=== PATIENT | female | born 1945 | race Caucasian/White ===

== ENCOUNTER 2022-06-20 14:42 | Outpatient (REF) | payer MEDICARE, SELFPAY ==
[2022-06-20 14:58] LABS: MANUAL DIFF FLAG NO
[2022-06-20 15:54] LABS: Basophils Percent Auto 0.5 % (0-2); Eosinophils Absolute Auto 0.1 X10*3/uL (0.0-0.4); Hematocrit 37.7 % (37.0-47.0); Hemoglobin 12.2 g/dl (12.0-16.0); Imm Gran Abs Auto 0.02 X10*3/uL (0.00-0.03); Imm Gran Pct Auto 0.3 % (0.0-0.4); Mean Corpuscular HGB Conc 32.4 g/dl (31.0-35.0); Mean Corpuscular Hemoglobin 30.1 pg (27.0-33.0); Mean Corpuscular Volume 93.1 fL (80.0-98.0); Mean Platelet Volume 10.4 fL (9.4-12.3); Monocytes Absolute Auto 0.4 X10*3/uL (0.1-1.2); Monocytes Percent Auto 7.1 % (2-11); Neutrophils Absolute Auto 3.3 x10*3/uL (2.0-8.3); Neutrophils Percent Auto 56.1 % (45-73); Platelet Count 281 X10*3/uL (160-400); Red Blood Count 4.05 X10*6/uL (4.20-5.50); Red Cell Distribution Width 13.3 % (11.0-16.0); White Blood Count 5.8 X10*3/uL (4.8-10.8)
[2022-06-20 16:26] LABS: Alanine Aminotransferase 14 U/L (0-31); Albumin Level 4.3 g/dL (3.5-5.0); Alkaline Phosphatase 79 U/L (39-117); Anion Gap 16 (12-20); Aspartate Amino Transferase 19 U/L (5-31); Bilirubin Total 0.5 mg/dL (0.0-1.0); Blood Urea Nitrogen 16 mg/dL (9-16); Calcium 9.2 mg/dL (8.4-10.2); Carbon Dioxide 24 mmol/L (22-29); Chloride 107 mmol/L (96-108); Cholesterol 184 mg/dL; Estimated Glomerular Filt Rate > 60; Glucose Fasting 88 mg/dL (60-99); HDL Cholesterol 68 mg/dL; LDL Cholesterol Calculated 100 mg/dl; Potassium 4.2 mmol/L (3.3-5.1); Sodium 143 mmol/L (135-145); Total Protein 7.1 g/dL (6.5-8.0); Triglycerides 82 mg/dL
== END 2022-06-20 14:43 | disposition home or self-care (01) ==
LOC: HO.LAB 14:42
PROVIDERS: PCP Internal Medicine; Visit Provider Internal Medicine
DX: Z13.0 Encounter for screening for diseases of the blood and blood-forming organs and certain disorders involving the immune mechanism (principal); E78.5 Hyperlipidemia, unspecified; E03.9 Hypothyroidism, unspecified; I10 Essential (primary) hypertension
CPT/HCPCS: 36415; 80053; 80061; 84443; 85025

== ENCOUNTER 2022-09-26 12:58 | Emergency (ER) | payer MEDICARE, SELFPAY ==
--- NOTE | ~2022-09-26 | XR_ITS ---
EXAMINATION: AP PELVIS, 2 VIEWS LEFT HIP, LEFT SHOULDER/HUMERUS. CLINICAL INFORMATION: Pain COMPARISON: CT scan of May 03, 2011 TECHNIQUE: AP pelvis and 2 views left hip. 3 views of the left shoulder and humerus. FINDINGS: AP film of the pelvis does not demonstrate any definite acute fracture or diastases. There is stool overlying the left superior and inferior pubic rami and evaluation of this region is limited. There is significant degenerative change of the lower lumbar spine from L3 to S1. No significant sacroiliac joint abnormalities appreciated. Hip joint spaces appear maintained. There appears to be osteitis pubis. No acute fracture is identified. There is some degenerative spurring about the inferior acetabulum. This essentially nondisplaced fracture of the proximal left humerus involving the greater tuberosity. Calcific tendinitis is also present.. XR/XR shoulder LT min 2V IMPRESSION: Lumbar spondylosis. No definite acute fracture or diastases of the pelvis and no definite acute fracture or dislocation of the left hip. Left greater tuberosity essentially nondisplaced fracture and calcific tendinitis.
--- NOTE | ~2022-09-26 | CT_ITS ---
EXAMINATION: CT chest wo IV con. CLINICAL INFORMATION: Reason for Exam Left chest wall pain COMPARISON: Prior CT 2013 TECHNIQUE: Multidetector volumetric CT imaging of the chest was done. Axial MIP volume rendering provided. Sagittal and coronal reformatted images were obtained. This CT examination was performed using dose optimization techniques as appropriate, variously including the following: *Automated exposure control *Adjustment of mA and/or kV according to patient size (this includes techniques or standardized protocols for targeted exams where dose is matched to indication/reason for exam; i.e. extremities or head) *Use of iterative reconstruction technique CONTRAST: Noncontrasted study. DLP: 340 mGy-cm FINDINGS: Exam limited by motion artifacts. SECURITY SHIFT SUPERVISOR: LINES/TUBES: Double End Trimmer reviewed, no lines. LUNGS: Lung parenchyma: No evidence of significant interstitial disease. Lung nodules/masses: No lung mass or suspicious spiculated nodules, there are few scattered tiny nonspecific lung nodular densities measuring up to 3 mm or less. AIRWAYS: Endotracheal and bronchial calcification trachea, stenosis. No intrabronchial mass or lesion. PLEURA: No lung mass or suspicious spiculated nodules, there are few scattered tiny nonspecific lung nodular densities measuring up to 3 mm or less. MEDIASTINUM AND JOAQUIM: No mediastinal, hilar or axillary lymphadenopathy. No mediastinal mass. VESSELS: HEART AND PERICARDIUM: Thoracic aorta is normal in size. Heart is normal in size. No pericardial effusion. There are heavy coronary calcifications. Pulmonary arteries are normal in size. LOWER NECK, AXILLA: The visualized thyroid gland is unremarkable. No axillary mass or adenopathy. VISUALIZED ABDOMEN: Unremarkable CHEST WALL AND BONES: No chest wall mass. The visualized bony thorax is within normal limits. CT/CT chest wo IV con IMPRESSION: Markedly limited study, patient positioned obliquely in the scanner, extensive motion artifact causing image distortion. * No lung mass or suspicious spiculated nodules, there are few scattered tiny nonspecific lung nodular densities measuring up to 3 mm or less. * Heavy coronary calcification. * No CT evidence of mediastinal or hilar lymphadenopathy.
--- NOTE | ~2022-09-26 | XR_ITS ---
EXAMINATION: AP PELVIS, 2 VIEWS LEFT HIP, LEFT SHOULDER/HUMERUS. CLINICAL INFORMATION: Pain COMPARISON: CT scan of May 03, 2011 TECHNIQUE: AP pelvis and 2 views left hip. 3 views of the left shoulder and humerus. FINDINGS: AP film of the pelvis does not demonstrate any definite acute fracture or diastases. There is stool overlying the left superior and inferior pubic rami and evaluation of this region is limited. There is significant degenerative change of the lower lumbar spine from L3 to S1. No significant sacroiliac joint abnormalities appreciated. Hip joint spaces appear maintained. There appears to be osteitis pubis. No acute fracture is identified. There is some degenerative spurring about the inferior acetabulum. This essentially nondisplaced fracture of the proximal left humerus involving the greater tuberosity. Calcific tendinitis is also present.. XR/XR humerus LT IMPRESSION: Lumbar spondylosis. No definite acute fracture or diastases of the pelvis and no definite acute fracture or dislocation of the left hip. Left greater tuberosity essentially nondisplaced fracture and calcific tendinitis.
--- NOTE | ~2022-09-26 | XR_ITS ---
EXAMINATION: AP PELVIS, 2 VIEWS LEFT HIP, LEFT SHOULDER/HUMERUS. CLINICAL INFORMATION: Pain COMPARISON: CT scan of May 03, 2011 TECHNIQUE: AP pelvis and 2 views left hip. 3 views of the left shoulder and humerus. FINDINGS: AP film of the pelvis does not demonstrate any definite acute fracture or diastases. There is stool overlying the left superior and inferior pubic rami and evaluation of this region is limited. There is significant degenerative change of the lower lumbar spine from L3 to S1. No significant sacroiliac joint abnormalities appreciated. Hip joint spaces appear maintained. There appears to be osteitis pubis. No acute fracture is identified. There is some degenerative spurring about the inferior acetabulum. This essentially nondisplaced fracture of the proximal left humerus involving the greater tuberosity. Calcific tendinitis is also present.. XR/XR hip LT w PEL1V IMPRESSION: Lumbar spondylosis. No definite acute fracture or diastases of the pelvis and no definite acute fracture or dislocation of the left hip. Left greater tuberosity essentially nondisplaced fracture and calcific tendinitis.
[2022-09-26 13:23] VITALS: BP 196/68; BP 204/60; PULSE 60; PULSE 67; RESP 22; TEMP 36.5; O2SAT 98; BMI 29.2
--- NOTE | 2022-09-26 13:45 | ED_ITS ---
HPI - Extremity Problem General Chief complaint: Extremity Injury, Upper Stated complaint: FALL PER EMS Time Seen by Provider: 09/26/22 13:34 Source: patient Mode of arrival: ambulatory History of Present Illness HPI Narrative: 77-year-old female is brought in by EMS after she was scared by a mouse which causes her to jump back she became unsteady and fell onto her left side and comes in with significant left arm pain, left chest wall pain but denies any head strike or loss of consciousness. Patient also states that she is having left hip pain. She denies any numbness or tingling in the left upper extremity and is able to wiggle her fingers. Related Data Previous Rx's Medication Instructions Recorded atorvastatin 20 mg tablet 20 mg PO BEDTIME #90 tabs 06/25/22 benazepril 20 mg tablet 20 mg PO DAILY #90 tabs 09/05/22 Allergies Allergy/AdvReac Type Severity Reaction Status Date / Time acetaminophen [From TYLENOL] Allergy Unknown UNKNOWN Verified 09/20/22 09:25 atorvastatin Allergy Unknown abdominal Verified 09/20/22 09:25 cramps atracurium Allergy Unknown Unknown Verified 09/20/22 09:25 eggs Allergy Unknown diarrhea Verified 09/20/22 09:25 lactase [From Dairy Aid] Allergy Unknown diarrhea Verified 09/20/22 09:25 morphine [MORPHINE] Allergy Unknown VOMITING Verified 09/20/22 09:25 sugar Allergy Unknown anaphylaxis Verified 09/20/22 09:25 urea [From Atrac-Tain] Allergy Unknown Unknown Verified 09/20/22 09:25 milk [MILK] AdvReac Intermediate NAUSEA & Verified 09/20/22 09:25 VOMITING Sugars, Metabolically Active AdvReac Intermediate NAUSEA & Verified 09/20/22 09:25 [SUGAR] VOMITING Review of Systems Review of Systems: Pertinent positives and negatives as stated in HPI PMFSH Past Medical History Source: nursing notes reviewed Medical History Hyperlipidemia Surgical History History of appendectomy History of cholecystectomy History of hysterectomy History of tonsillectomy Skin cancer of face Family History Family History Father Lung cancer Mother Alzheimers disease Sister Uterine cancer Brother No problems noted. Son No problems noted. Son No problems noted. Son No problems noted. Son No problems noted. Social History Social History Housing: House Alcohol intake: never Patient Tobacco Use Status: Never used Tobacco e-Cigarette/Vaping Use: Never Used Second Hand Smoke Exposure: No Advance Directives: Yes Advance Directives Information Provided: No Advance Directives on File: No service: No Current occupational status: retired Physical Exam Vital Signs: Vital Signs: Last Vital Signs Temp 98.2 F 09/26/22 16:35 Pulse 58 09/26/22 16:35 Resp 14 09/26/22 16:35 BP 174/82 H 09/26/22 16:35 Pulse Ox 97 09/26/22 16:35 O2 Del Method 09/26/22 16:35 BMI result Body Mass Index 29.2 VITAL SIGNS: Reviewed. GENERAL: Well developed, well nourished, in no acute distress. HEAD: Normocephalic/atraumatic EYES: PERRLA, EOMI EARS: Ext canals without abnormality NOSE: Nares patent bilateral OROPHARYNX: no oral lesions noted, posterior pharynx clear NECK: Supple, no adenopathy LUNGS: Normal breath sounds. No adventitious sounds or accessory muscle use. SpO2<98> CARDIOVASCULAR: Regular rate and rhythm without noted murmurs ABDOMEN: Soft, non-tender, non-distended with bowel sounds. PELVIS: Stable but tenderness noted over the left hip area and some concern for possible rotation and shortening MUSCULOSKELETAL: No tenderness, deformities, or effusions noted on gross inspection. EXTREMITIES: No cyanosis, clubbing or edema; LEFT UPPER EXTREMITY: Patient has swelling over the lateral humeral head, no tenderness to palpation over the AC, palpable radial/ulnar pulses with sensation intact. SKIN: Inspection of the skin reveals no rashes NEUROLOGIC: Alert and oriented x 4. Strength and sensation to light touch were grossly intact x 4. Medications Administered Discontinued Medications Generic Name Dose Route Start Last Admin Trade Name Freq PRN Reason Stop Dose Admin Fentanyl 25 mcg 09/26/22 13:42 09/26/22 13:53 Fentanyl Citrate/Pf 100 Mcg/2 Ml Vial IVPUSH 09/26/22 13:43 25 mcg ONCE ONE Administration Protocol Medical Decision Making Medical Decision Making MDM Narrative: 77-year-old female with a fall and suspect left humeral/hip fracture 1646: There is no evidence of acute infection and hemoglobin appears to be stable, chemistries are negative for acute renal or electrolyte derangement. X- rays are significant for nondisplaced fracture of the left greater tuberosity of the humerus. Patient is doing much better after having received pain medication and will be placed in sling and given follow-up for Orthopedics. Differential Diagnosis Differential Diagnoses: The differential diagnosis associated with the presentation includes I will rule out fracture or dislocation of the left shoulder, fracture of the left hip Lab Data MDM Lab Attestation statement: I reviewed the patient's lab results. Please see discussion above Result Diagrams: 09/26/22 13:59 09/26/22 13:59 Labs: Lab Results 09/26/22 09/26/22 09/26/22 Range/Units 13:59 13:59 13:59 WBC 7.4 (4.8-10.8) X10*3/uL RBC 3.83 L (4.20-5.50) X10*6/uL Hgb 11.5 L (12.0-16.0) g/dl Hct 34.6 L (37.0-47.0) % MCV 90.3 (80.0-98.0) fL MCH 30.0 (27.0-33.0) pg MCHC 33.2 (31.0-35.0) g/dl RDW 13.0 (11.0-16.0) % Plt Count 228 (160-400) X10*3/uL MPV 10.2 (9.4-12.3) fL Immature Gran % (Auto) 0.3 (0.0-0.4) % Neut % (Auto) 75.9 H (45-73) % Lymph % (Auto) 14.7 L (20-40) % [place] % (Auto) 8.0 (2-11) % Eos % (Auto) 0.7 (0-4) % Baso % (Auto) 0.4 (0-2) % Lymph # (Auto) 1.1 L (1.2-4.9) X10*3/uL [place] # (Auto) 0.6 (0.1-1.2) X10*3/uL Eos # (Auto) 0.1 (0.0-0.4) X10*3/uL Baso # (Auto) 0.0 (0.0-0.2) X10*3/uL Abs Immat Gran (auto) 0.02 (0.00-0.03) X10*3/uL Absolute Neuts (auto) 5.6 (2.0-8.3) x10*3/uL Absolute Nucleated RBC 0.000 (0.0-0.012) X10*3/uL Nucleated RBC % (auto) 0.0 (0.0-0.2) /100WBC PT 11.1 (10.0-13.1) SEC INR 1.0 (0.9-1.1) Sodium 142 (135-145) mmol/L Potassium 3.8 (3.3-5.1) mmol/L Chloride 109 H (96-108) mmol/L Carbon Dioxide 21 L (22-29) mmol/L Anion Gap 16 (12-20) BUN 17 H (9-16) mg/dL Creatinine 0.83 (0.5-1.4) mg/dL Estim Creat Clear Calc 51.3 Estimated GFR > 60 Random Glucose 89 (60-115) mg/dL Calcium 9.0 (8.4-10.2) mg/dL Total Bilirubin 0.5 (0.0-1.0) mg/dL AST 19 (5-31) U/L ALT 15 (0-31) U/L Alkaline Phosphatase 82 (39-117) U/L Total Protein 6.4 L (6.5-8.0) g/dL Albumin 3.9 (3.5-5.0) g/dL Radiology Impression Radiologist Impression: My interpretation is in agreement with the radiologist's impression of imaging studies. External Record Review External record reviewed: Outpatient record and Prior outpatient labs Discharge Plan Discharge Clinical Impression: Fall, Closed left humeral fracture Patient Disposition: Home, Self-Care Instructions: Fall Prevention for Older Adults (ED), Arm Fracture in Adults (ED ), How to Use a Sling (ED) Additional Instructions: 1. Resume all home medications as prescribed. 2. Tylenol 1000 mg, orally, every 6 hours as needed for pain control. Do not exceed 4000 mg within 24 hours. 3. Ibuprofen 400 mg, orally with milk or food, every 6 hours as needed for pain control. 4. It will be important for you to keep the sling in place unless showering. You have been provided with a referral to follow-up with orthopedics in 1 week. Please call the office tomorrow. 5. Recommend that you apply ice to unexposed skin for 5-10 minutes, 3 to 4 times a day. Return to the ER for any worsening symptoms. Prescriptions: No Action atorvastatin 20 mg tablet 20 mg PO BEDTIME Qty: 90 3RF benazepril 20 mg tablet 20 mg PO DAILY Qty: 90 7RF Referrals: Romel Arauz MD [Primary Care Provider] - (Left humeral fracture) Jagdeep Graff MD [Physician] - (Left, nondisplaced fracture of the greater tuberosity. Patient in a sling.)
[2022-09-26] MEDS: fentaNYL citrate/PF 100 MCG/2 ML VIAL 25 MCG IVPUSH (13:53)
--- NOTE | 2022-09-26 14:03 | PC.NURSE ---
PAtient i bit calmer tolerated IV pain meds son at bedside, patient reports pain primarily left upper ext and left ankle no abduction or shortening noted.
[2022-09-26 14:05] LABS: MANUAL DIFF FLAG NO
[2022-09-26 14:08] LABS: Basophils Percent Auto 0.4 % (0-2); Eosinophils Absolute Auto 0.1 X10*3/uL (0.0-0.4); Eosinophils Percent Auto 0.7 % (0-4); Hematocrit 34.6 % (37.0-47.0); Hemoglobin 11.5 g/dl (12.0-16.0); Imm Gran Abs Auto 0.02 X10*3/uL (0.00-0.03); Imm Gran Pct Auto 0.3 % (0.0-0.4); Lymphocytes Absolute Auto 1.1 X10*3/uL (1.2-4.9); Lymphocytes Percent Auto 14.7 % (20-40); Mean Corpuscular HGB Conc 33.2 g/dl (31.0-35.0); Mean Corpuscular Volume 90.3 fL (80.0-98.0); Mean Platelet Volume 10.2 fL (9.4-12.3); Monocytes Absolute Auto 0.6 X10*3/uL (0.1-1.2); Neutrophils Absolute Auto 5.6 x10*3/uL (2.0-8.3); Neutrophils Percent Auto 75.9 % (45-73); Platelet Count 228 X10*3/uL (160-400); Red Blood Count 3.83 X10*6/uL (4.20-5.50); White Blood Count 7.4 X10*3/uL (4.8-10.8)
[2022-09-26 14:13] LABS: Prothrombin Time 11.1 SEC (10.0-13.1)
[2022-09-26 14:19] LABS: Alanine Aminotransferase 15 U/L (0-31); Albumin Level 3.9 g/dL (3.5-5.0); Alkaline Phosphatase 82 U/L (39-117); Anion Gap 16 (12-20); Aspartate Amino Transferase 19 U/L (5-31); Bilirubin Total 0.5 mg/dL (0.0-1.0); Blood Urea Nitrogen 17 mg/dL (9-16); Carbon Dioxide 21 mmol/L (22-29); Chloride 109 mmol/L (96-108); Creatinine Clr Calc Pharmacy 51.3; Estimated Glomerular Filt Rate > 60; Glucose Random 89 mg/dL (60-115); Potassium 3.8 mmol/L (3.3-5.1); Sodium 142 mmol/L (135-145); Total Protein 6.4 g/dL (6.5-8.0)
[2022-09-26 16:02] VITALS: BP 165/81; PULSE 63; RESP 18; O2SAT 98
[2022-09-26 16:35] VITALS: BP 174/82; PULSE 58; RESP 14; TEMP 36.8; O2SAT 97
--- NOTE | 2022-09-26 16:57 | PC.NURSE ---
Applied sling to left arm, pt was in pain stating it hurt. Sling successfully applied and pt is resting waiting to be discharged. SG
== END 2022-09-26 17:16 | disposition home or self-care (01) ==
PROVIDERS: Emergency Provider Student in an Organized Health Care Education/Training Program; PCP Internal Medicine
DX: S42.255A Nondisplaced fracture of greater tuberosity of left humerus, initial encounter for closed fracture (principal); W17.89XA Other fall from one level to another, initial encounter; M25.552 Pain in left hip; I10 Essential (primary) hypertension; E78.5 Hyperlipidemia, unspecified; Y93.89 Activity, other specified; Y92.019 Unspecified place in single-family (private) house as the place of occurrence of the external cause; Y99.9 Unspecified external cause status; Z79.02 Long term (current) use of antithrombotics/antiplatelets; Z79.899 Other long term (current) drug therapy
CPT/HCPCS: 36415; 71250; 73030; 73060; 73502; 80053; 85025; 85610; 96374; 99283; 99284; J3010

== ENCOUNTER 2022-10-11 10:01 | Outpatient (REF) | payer MEDICARE, SELFPAY ==
--- NOTE | ~2022-10-11 | XR_ITS ---
EXAMINATION: XR SHOULDER, LEFT CLINICAL INFORMATION: Left shoulder pain. COMPARISON: Left shoulder 09/26/2022. TECHNIQUE: Suboptimal left shoulder exam; only 2 views obtained due to pain. FINDINGS: There is a nondisplaced left humeral neck fracture. There is a small avulsion fracture fragment along the lateral humeral head. There is no dislocation. The AC joint is intact. The soft tissues are normal. XR/XR shoulder LT min 2V IMPRESSION: Nondisplaced left humeral neck fracture. There is a small avulsion fracture fragment along the lateral humeral head. The fracture was noted on the previous left shoulder x-ray 09/26/2022.
== END 2022-10-11 10:02 | disposition home or self-care (01) ==
LOC: HO.HOSX 10:01
PROVIDERS: Visit Provider Physician Assistant
DX: S42.202A Unspecified fracture of upper end of left humerus, initial encounter for closed fracture (principal)
CPT/HCPCS: 73030; 99202

== ENCOUNTER 2022-11-10 14:54 | Outpatient (REF) | payer MEDICARE, SELFPAY ==
--- NOTE | ~2022-11-10 | XR_ITS ---
EXAMINATION: XR SHOULDER, LEFT CLINICAL INFORMATION: Left shoulder pain. COMPARISON: 10/11/2022. TECHNIQUE: Two views of the left shoulder. FINDINGS: There is an impacted fracture of the left humeral neck which appears stable in alignment compared to prior. There is increasing sclerosis across the fracture site. The AC joint appears intact. The visible left lung is clear. XR/XR shoulder LT min 2V IMPRESSION: Impacted left humeral neck fracture.
== END 2022-11-10 14:55 | disposition home or self-care (01) ==
LOC: HO.HOSX 14:54
PROVIDERS: Visit Provider Physician Assistant
DX: S42.202A Unspecified fracture of upper end of left humerus, initial encounter for closed fracture (principal)
CPT/HCPCS: 73030; 99212

== ENCOUNTER 2023-04-18 10:32 | Outpatient (AMB) | payer MEDICARE, SELFPAY ==
--- NOTE | 2023-04-18 10:45 | MHC.PC.OV ---
Vital Signs 04/18/23 10:46 Height 5 ft 2 in Weight 131 lb 6.328 oz BMI 24.0 BP 130/62 Blood Pressure Location Lt brachial Position Sitting Pulse 62 Pulse Source Pulse Oximeter Pulse Oximetry (%) 99 Oxygen Delivery Method Room Air Intake Visit Reasons: 3 month f/u Intake Note: Patient is here to follow up on HTN, Hyperlipidemia. Artificial Foliage Arranger Required: No Site Supervisor: Not Required per policy Accompanied by: Self / Same As Patient Allergies acetaminophen [From TYLENOL] Allergy (Unknown, Verified 04/18/23 10:46) UNKNOWN atorvastatin Allergy (Unknown, Verified 04/18/23 10:46) abdominal cramps atracurium Allergy (Unknown, Verified 04/18/23 10:46) Unknown egg Allergy (Unknown, Verified 04/18/23 10:46) Diarrhea lactase [From Dairy Aid] Allergy (Unknown, Verified 04/18/23 10:46) diarrhea morphine [MORPHINE] Allergy (Unknown, Verified 04/18/23 10:46) VOMITING sugar Allergy (Unknown, Verified 04/18/23 10:46) anaphylaxis urea [From Atrac-Tain] Allergy (Unknown, Verified 04/18/23 10:46) Unknown milk [MILK] Adverse Reaction (Intermediate, Verified 04/18/23 10:46) NAUSEA & VOMITING Sugars, Metabolically Active [SUGAR] Adverse Reaction (Intermediate, Verified 04/18/23 10:46) NAUSEA & VOMITING Medication List - Last Reconciled 04/18/23 by Romel Arauz MD atorvastatin 20 mg PO BEDTIME benazepril 20 mg PO DAILY Tobacco use date assessed: 04/18/23 Fall risk assessment: 1 Fall in past year Last assessed Fall Risk: 04/18/23 Dental Screening Dental Screen Date: 04/18/23 Did you have a dental visit in the last 12 months?: Yes Did you have a dental problem in the last 6 months where you did not have access to dental care?: No Was dental information given to patient?: No (dentures) HPI 3 month f/u HPI Details hyperlipidemia and htn on rx; has not done labs yet [facility] Medical History (Updated 01/19/23 @ 10:13 by Romel Arauz MD) Hyperlipidemia Surgical History History of appendectomy History of cholecystectomy History of hysterectomy History of tonsillectomy Skin cancer of face Family History (Updated 04/18/23 @ 10:53 by MARKOS Yanes) Father Lung cancer Mother Alzheimers disease Sister Uterine cancer Brother No problems noted. Son No problems noted. Son No problems noted. Son No problems noted. Son No problems noted. Other Mental health disorder Social History Housing: House Alcohol intake: never Patient Tobacco Use Status: Never used Tobacco e-Cigarette/Vaping Use: Never Used Second Hand Smoke Exposure: No service: No Current occupational status: retired Cognitive needs: Yes (cane/scotter) Hearing needs: No Vision needs: Yes (Glasses) Questionnaire PHQ-9 Over the last 2 weeks, how often have you been bothered by any of the following problems? Depression Screening Interpretation: Negative Source: Developed by Drs. Dex Ochoa, Kelsey Ty, Wil Puga and colleagues, with an educational camilo from [employer]. Thrive Questionnaire Date Thrive assessed: 09/29/22 Currently or been in a relationship where the following occur: no concerns reported ANNELISE-7 AMB Questionnaire ANNELISE-7 Date ANNELISE - 7 assessed: 09/29/22 Source: Developed by Drs. Dex Ochoa, Kelsey Ty, Wil Puga and colleagues, with an educational camilo from [employer]. Review of Systems Const Denies chills, Denies headache(s) and Denies weight loss ENT Denies headache(s) Card Denies chest pain, Denies syncope, Denies irregular heart rhythm and Denies dyspnea Resp Denies chest congestion, Denies cough and Denies dyspnea GI Denies abdominal pain, Denies change in stool character, Denies nausea and Denies vomiting Musc Denies deformity and Denies joint swelling Neuro Denies syncope and Denies headache(s) Physical exam (Primary Care) Vital Signs: Last Vital Signs Pulse 62 04/18/23 10:46 BP 130/62 04/18/23 10:46 Pulse Ox 99 04/18/23 10:46 Oxygen Delivery Method Room Air 04/18/23 10:46 BMI result Body Mass Index 24.0 Tobacco/Smoking Status: Tobacco use Status Tobacco use date assessed 04/18/23 04/18/23 10:46 Patient Tobacco Use Status Never used Tobacco 04/18/23 10:46 e-Cigarette/Vaping Use Never Used 04/18/23 10:46 Depression Screening Interpretation: Negative Thrive Assessment: Date of Thrive Assessment Date Thrive assessed 09/29/22 04/18/23 10:46 Currently or been in a relationship where the following occur: no concerns reported Const General: cooperative, comfortable and no acute distress Resp Effort & Inspection: normal respiratory effort Auscultation: clear to auscultation bilaterally Percussion: percussion normal Cardio Jugular venous distension: no JVD Rate: regular rate Rhythm: regular rhythm GI Inspection: Yes normal to inspection Assessment and Plan Assessment & Plan (1) Hypertension: Code(s): I10 - Essential (primary) hypertension Plan: stable; same rx (2) Hyperlipidemia: Code(s): E78.5 - Hyperlipidemia, unspecified Plan: stable; do labs Coding Level of Care Code Est Pt Level 3 (37862) Diagnoses Hypertension I10 Hyperlipidemia E78.5
[2023-04-18 10:46] VITALS: BP 130/62; PULSE 62; O2SAT 99; BMI 24.0
== END 2023-04-18 11:04 | disposition home or self-care (01) ==
PROVIDERS: PCP Internal Medicine; Visit Provider Internal Medicine
DX: I10 Essential (primary) hypertension (principal); E78.5 Hyperlipidemia, unspecified
CPT/HCPCS: 99213

== ENCOUNTER 2023-07-04 08:07 | Outpatient (REF) | payer MEDICARE, SELFPAY | END 2023-07-04 08:08 | disposition home or self-care (01) | LOC: HO.LAB 08:07 | PROVIDERS: PCP Internal Medicine; Visit Provider Internal Medicine | DX: D64.9 Anemia, unspecified (principal); N28.9 Disorder of kidney and ureter, unspecified; E03.9 Hypothyroidism, unspecified; E78.5 Hyperlipidemia, unspecified | CPT/HCPCS: 36415; 80053; 80061; 84443; 85025 ==

== ENCOUNTER 2023-07-19 10:18 | Outpatient (AMB) | payer MEDICARE, SELFPAY ==
--- NOTE | 2023-07-19 10:24 | MHC.PC.OV ---
Vital Signs 07/19/23 10:25 Height 5 ft 2 in Weight 132 lb 11.492 oz BMI 24.3 BP 132/70 Blood Pressure Location Lt brachial Position Sitting Pulse 72 Pulse Source Pulse Oximeter Pulse Oximetry (%) 99 Oxygen Delivery Method Room Air Intake Visit Reasons: 3mon f/u Allergies acetaminophen [From TYLENOL] Allergy (Unknown, Verified 07/19/23 10:25) UNKNOWN atorvastatin Allergy (Unknown, Verified 07/19/23 10:25) abdominal cramps atracurium Allergy (Unknown, Verified 07/19/23 10:25) Unknown egg Allergy (Unknown, Verified 07/19/23 10:25) Diarrhea lactase [From Dairy Aid] Allergy (Unknown, Verified 07/19/23 10:25) diarrhea morphine [MORPHINE] Allergy (Unknown, Verified 07/19/23 10:25) VOMITING sugar Allergy (Unknown, Verified 07/19/23 10:25) anaphylaxis urea [From Atrac-Tain] Allergy (Unknown, Verified 07/19/23 10:25) Unknown milk [MILK] Adverse Reaction (Intermediate, Verified 07/19/23 10:25) NAUSEA & VOMITING Sugars, Metabolically Active [SUGAR] Adverse Reaction (Intermediate, Verified 07/19/23 10:25) NAUSEA & VOMITING Medication List - Last Reconciled 07/19/23 by Romel Arauz MD atorvastatin 20 mg PO BEDTIME benazepril 20 mg PO DAILY Tobacco use date assessed: 04/18/23 Fall risk assessment: No Falls in past year Last assessed Fall Risk: 07/19/23 Dental Screening Dental Screen Date: 07/19/23 Did you have a dental visit in the last 12 months?: No Did you have a dental problem in the last 6 months where you did not have access to dental care?: No Was dental information given to patient?: Patient has dentist HPI 3mon f/u HPI Details sore throat and congestion for a week PFSH Medical History Hyperlipidemia Surgical History Skin cancer of face History of hysterectomy History of cholecystectomy History of appendectomy History of tonsillectomy Family History Father Lung cancer Mother Alzheimers disease Sister Uterine cancer Brother No problems noted. Son No problems noted. Son No problems noted. Son No problems noted. Son No problems noted. Other Mental health disorder Social History Housing: House Alcohol intake: never Patient Tobacco Use Status: Never used Tobacco e-Cigarette/Vaping Use: Never Used Second Hand Smoke Exposure: No service: No Current occupational status: retired Cognitive needs: Yes (cane/scotter) Hearing needs: No Vision needs: Yes (Glasses) Questionnaire PHQ-9 Over the last 2 weeks, how often have you been bothered by any of the following problems? 1. Little interest or pleasure in doing things: not at all 2. Feeling down, depressed, or hopeless: not at all 3. Trouble falling or staying asleep, or sleeping too much: not at all 4. Feeling tired or having little energy: not at all 5. Poor appetite or overeating: not at all 6. Feeling bad about yourself - or that you are a failure or have let yourself or your family down: not at all 7. Trouble concentrating on things, such as reading the newspaper or watching television: not at all 8. Moving or speaking so slowly that other people could have noticed. Or the opposite - being so fidgety or restless that you have been moving around a lot more than usual: not at all 9. Thoughts that you would be better off or of hurting yourself in some way: not at all Total score: 0 Depression Screening Interpretation: Negative Depression Screening Done: Yes Source: Developed by Drs. Dex Ochoa, Wil Velasquez and colleagues, with an educational camilo from [employer]. Thrive Questionnaire Date Thrive assessed: 09/29/22 AUDIT C Alcohol Use Questionnaire (AUDIT-C) 1. How often do you have a drink containing alcohol?: Never Total Score: 0 Score Reviewed/Action Taken: Yes ANNELISE-7 AMB Questionnaire ANNELISE-7 Date ANNELISE - 7 assessed: 09/29/22 Source: Developed by Drs. Dex Ochoa, Wil Velasquez and colleagues, with an educational camilo from [employer]. Review of Systems Const Denies chills, Denies headache(s) and Denies weight loss ENT Denies headache(s) Card Denies chest pain, Denies syncope, Denies irregular heart rhythm and Denies dyspnea Resp Denies dyspnea GI Denies abdominal pain, Denies change in stool character, Denies nausea and Denies vomiting Musc Denies deformity and Denies joint swelling Neuro Denies syncope and Denies headache(s) Physical exam (Primary Care) Vital Signs: Last Vital Signs Pulse 72 07/19/23 10:25 BP 132/70 07/19/23 10:25 Pulse Ox 99 07/19/23 10:25 Oxygen Delivery Method Room Air 07/19/23 10:25 BMI result Body Mass Index 24.3 Tobacco/Smoking Status: Tobacco use Status Tobacco use date assessed 04/18/23 07/19/23 10:26 Patient Tobacco Use Status Never used Tobacco 07/19/23 10:26 e-Cigarette/Vaping Use Never Used 07/19/23 10:26 PHQ-9: PHQ-9 Score PHQ-9: Total score 0 07/19/23 11:44 Depression Screening Interpretation: Negative Thrive Assessment: Date of Thrive Assessment Date Thrive assessed 09/29/22 07/19/23 10:26 Const General: cooperative, comfortable and no acute distress HENMT Other: pharynx clear, no adenopathy Neck Neck: Yes normal visual inspection Chest Chest palpation & inspection: normal inspection of the chest Resp Effort & Inspection: normal respiratory effort Auscultation: clear to auscultation bilaterally Percussion: percussion normal Assessment and Plan Assessment & Plan (1) Sore throat: Code(s): J02.9 - Acute pharyngitis, unspecified Plan: covid test Orders: Orders BinaxNOW Covid-19 Ag Today J02.9 - Acute pharyngitis, unspecified COVID-19 ID NOW (Tam) Today J02.9 - Acute pharyngitis, unspecified Coding Level of Care Code Est Pt Level 3 (40451) Diagnoses Sore throat J02.9
[2023-07-19 10:25] VITALS: BP 132/70; PULSE 72; O2SAT 99; BMI 24.3
== END 2023-07-19 11:35 | disposition home or self-care (01) ==
PROVIDERS: PCP Internal Medicine; Visit Provider Internal Medicine
DX: J02.9 Acute pharyngitis, unspecified (principal)
CPT/HCPCS: 99213

== ENCOUNTER 2023-07-19 10:50 | Outpatient (REF) | payer MEDICARE, SELFPAY ==
[2023-07-19 11:59] LABS: COVID-19 Test Negative (Negative); IDNOW Serial# BCCEAD1C
== END 2023-07-19 10:51 | disposition home or self-care (01) ==
LOC: HO.LAB 10:50
PROVIDERS: PCP Internal Medicine; Visit Provider Internal Medicine
DX: J02.9 Acute pharyngitis, unspecified (principal); Z11.52 Encounter for screening for COVID-19
CPT/HCPCS: 87635

== ENCOUNTER 2023-10-11 10:17 | Outpatient (AMB) | payer MEDICARE, SELFPAY ==
--- NOTE | 2023-10-11 10:21 | A.OFFPC_ITS ---
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 Grounds Manager: Not Required per policy Accompanied by: Self / Same As Patient Allergies acetaminophen [From TYLENOL] Allergy (Unknown, Verified 10/11/23 10:22) UNKNOWN atorvastatin Allergy (Unknown, Verified 10/11/23 10:22) abdominal cramps atracurium Allergy (Unknown, Verified 10/11/23 10:22) Unknown egg Allergy (Unknown, Verified 10/11/23 10:22) Diarrhea lactase [From Dairy Aid] Allergy (Unknown, Verified 10/11/23 10:22) diarrhea morphine [MORPHINE] Allergy (Unknown, Verified 10/11/23 10:22) VOMITING sugar Allergy (Unknown, Verified 10/11/23 10:22) anaphylaxis urea [From Atrac-Tain] Allergy (Unknown, Verified 10/11/23 10:22) Unknown milk [MILK] Adverse Reaction (Intermediate, Verified 10/11/23 10:22) NAUSEA & VOMITING Sugars, Metabolically Active [SUGAR] Adverse Reaction (Intermediate, Verified 0 10/11/23 10:22) NAUSEA & VOMITING Medication List - Last Reconciled 10/11/23 by Romel Arauz MD atorvastatin 20 mg PO BEDTIME benazepril 20 mg PO DAILY Tobacco use date assessed: 10/11/23 Fall risk assessment: 1 Fall in past year Last assessed Fall Risk: 10/11/23 Dental Screening Dental Screen Date: 10/11/23 Did you have a dental visit in the last 12 months?: No Did you have a dental problem in the last 6 months where you did not have access to dental care?: No Was dental information given to patient?: Patient has dentist HPI 3m f/u, hyperlipidemia HPI Details HTN on Rx; doing well; compliant [facility] Medical History Hyperlipidemia Surgical History Skin cancer of face History of hysterectomy History of cholecystectomy History of appendectomy History of tonsillectomy Family History Father Lung cancer Mother Alzheimers disease Sister Uterine cancer Brother No problems noted. Son No problems noted. Son No problems noted. Son No problems noted. Son No problems noted. Other Mental health disorder Social History Housing: House Alcohol intake: never Patient Tobacco Use Status: Never used Tobacco e-Cigarette/Vaping Use: Never Used Second Hand Smoke Exposure: No service: No Current occupational status: retired Cognitive needs: Yes (cane/scotter) Hearing needs: No Vision needs: Yes (Glasses) Questionnaire PHQ-9 Over the last 2 weeks, how often have you been bothered by any of the following problems? 1. Little interest or pleasure in doing things: not at all 2. Feeling down, depressed, or hopeless: not at all 3. Trouble falling or staying asleep, or sleeping too much: not at all 4. Feeling tired or having little energy: not at all 5. Poor appetite or overeating: not at all 6. Feeling bad about yourself - or that you are a failure or have let yourself or your family down: not at all 7. Trouble concentrating on things, such as reading the newspaper or watching television: not at all 8. Moving or speaking so slowly that other people could have noticed. Or the opposite - being so fidgety or restless that you have been moving around a lot more than usual: not at all 9. Thoughts that you would be better off or of hurting yourself in some way: not at all Total score: 0 Depression Screening Interpretation: Negative Depression Screening Done: Yes 22996 - PHQ-9 Billing: Yes Source: Developed by Drs. Dex Ochoa, Kelsey Ty, Wil Puga and colleagues, with an educational camilo from [employer]. Thrive Questionnaire Date Thrive assessed: 10/11/23 I am a: Patient What is your living situation today?: I have a steady place to live Within the past 12 months, did the food you bought not last and you didn't have the money to get more?: Never true Within the past 12 months, did you worry whether your food would run out before you got money to buy more?: Never true Do you have trouble paying for medicines?: No Do you have trouble getting transportation to medical appointments?: No Do you have trouble paying your heating and electricity bill?: No Do you have trouble taking care of your child, family member or friend?: No Do you have trouble with day-to-day activities such as bathing, preparing meals, shopping, managing finances, etc.?: No Are you currently unemployed and looking for a job?: No Are you interested in more education?: No Please select the resources that you would like help with: None AUDIT C Alcohol Use Questionnaire (AUDIT-C) 1. How often do you have a drink containing alcohol?: Never Total Score: 0 Score Reviewed/Action Taken: Yes ANNELISE-7 AMB Questionnaire ANNELISE-7 Date ANNELISE - 7 assessed: 10/11/23 Feeling nervous, anxious, or on edge: 0 = Not at all Not being able to stop or control worryin = Not at all Worrying too much about different things: 0 = Not at all Trouble relaxin = Not at all Being so restless that it is hard to sit still: 0 = Not at all Becoming easily annoyed or irritable: 0 = Not at all Feeling afraid as if something awful might happen: 0 = Not at all Total ANNELISE-7 score (0-4 normal; 5-9 mild; 10-14 moderate; 15-21 severe): 0 Source: Developed by Drs. Dex Ochoa, Kelsey Ty, Wil Puga and colleagues, with an educational camilo from [employer]. ANNELISE-7 Assessment Billing ANNELISE-7 Assessment Tool: ANNELISE-7 Assessment 40274 Review of Systems Const Denies chills, Denies headache(s) and Denies weight loss ENT Denies headache(s) Card Denies chest pain, Denies syncope, Denies irregular heart rhythm and Denies dyspnea Resp Denies chest congestion, Denies cough and Denies dyspnea GI Denies abdominal pain, Denies change in stool character, Denies nausea and Denies vomiting Musc Denies deformity and Denies joint swelling Neuro Denies syncope and Denies headache(s) Physical exam (Primary Care) Vital Signs: Last Vital Signs Pulse 86 10/11/23 10:22 BP 126/82 10/11/23 10:22 Pulse Ox 96 10/11/23 10:22 Oxygen Delivery Method Room Air 10/11/23 10:22 BMI result Body Mass Index 24.2 Tobacco/Smoking Status: Tobacco use Status Tobacco use date assessed 10/11/23 10/11/23 10:23 Patient Tobacco Use Status Never used Tobacco 10/11/23 10:21 e-Cigarette/Vaping Use Never Used 10/11/23 10:21 PHQ-9: PHQ-9 Score PHQ-9: Total score 0 10/11/23 10:23 Depression Screening Interpretation: Negative Thrive Assessment: Date of Thrive Assessment Date Thrive assessed 10/11/23 10/11/23 10:23 Const General: cooperative, comfortable, no acute distress and alert Neck Neck: Yes no lymphadenopathy Thyroid: Thyroid normal Resp Effort & Inspection: normal respiratory effort Auscultation: clear to auscultation bilaterally Percussion: percussion normal Cardio Jugular venous distension: no JVD Palpation: normal PMI Rate: regular rate Rhythm: regular rhythm Heart sounds: S1 normal heart sound present and S2 normal heart sound present GI Inspection: Yes normal to inspection Palpation (GI): No hepatosplenomegaly present Skin General skin exam: no rashes or lesions noted Extrem General: Yes no clubbing, cyanosis or edema Assessment and Plan Assessment & Plan (1) Hypertension: Code(s): I10 - Essential (primary) hypertension Plan: stable; same rx Orders: Orders Lipid Panel Today E78.5 - Hyperlipidemia, unspecified Coding Level of Care Code Est Pt Level 3 (44318) Diagnoses Hypertension I10 Additional Codes ANNELISE-7 Assessment Billing - ANNELISE-7 Assessment Tool: ANNELISE-7 Assessment 42049 ([id number])
[2023-10-11 10:22] VITALS: BP 126/82; PULSE 86; O2SAT 96; BMI 24.2
== END 2023-10-11 10:50 | disposition home or self-care (01) ==
PROVIDERS: PCP Internal Medicine; Visit Provider Internal Medicine
DX: I10 Essential (primary) hypertension (principal)
CPT/HCPCS: 99213

== ENCOUNTER 2023-12-19 09:15 | Outpatient (REF) | payer MEDICARE, SELFPAY ==
[2023-12-19 10:38] LABS: Cholesterol 167 mg/dL (<200); HDL Cholesterol 73 mg/dL (>40); LDL Cholesterol Calculated 79 mg/dL (<100); Triglycerides 76 mg/dL (<150)
== END 2023-12-19 09:16 | disposition home or self-care (01) ==
LOC: HO.LAB 09:15
PROVIDERS: PCP Internal Medicine; Visit Provider Internal Medicine
DX: E78.5 Hyperlipidemia, unspecified (principal)
CPT/HCPCS: 36415; 80061

== ENCOUNTER 2024-01-10 11:09 | Outpatient (AMB) | payer MEDICARE, SELFPAY ==
--- NOTE | 2024-01-10 11:11 | MHC.PC.OV ---
Vital Signs 01/10/24 11:12 Height 5 ft 2 in Weight 130 lb 1.164 oz BMI 23.8 BP 134/86 Blood Pressure Location Lt brachial Position Sitting Pulse 66 Pulse Source Pulse Oximeter Pulse Oximetry (%) 99 Oxygen Delivery Method Room Air Intake Visit Reasons: 3 month f/u Allergies acetaminophen [From TYLENOL] Allergy (Unknown, Verified 01/10/24 11:17) UNKNOWN atorvastatin Allergy (Unknown, Verified 01/10/24 11:17) abdominal cramps atracurium Allergy (Unknown, Verified 01/10/24 11:17) Unknown egg Allergy (Unknown, Verified 01/10/24 11:17) Diarrhea lactase [From Dairy Aid] Allergy (Unknown, Verified 01/10/24 11:17) diarrhea morphine [MORPHINE] Allergy (Unknown, Verified 01/10/24 11:17) VOMITING sugar Allergy (Unknown, Verified 01/10/24 11:17) anaphylaxis urea [From Atrac-Tain] Allergy (Unknown, Verified 01/10/24 11:17) Unknown milk [MILK] Adverse Reaction (Intermediate, Verified 01/10/24 11:17) NAUSEA & VOMITING Sugars, Metabolically Active [SUGAR] Adverse Reaction (Intermediate, Verified 01/10/24 11:17) NAUSEA & VOMITING Medication List - Last Reconciled 01/11/24 by Romel Arauz MD atorvastatin 20 mg PO BEDTIME benazepril 20 mg PO DAILY Tobacco use date assessed: 01/10/24 Fall risk assessment: No Falls in past year Last assessed Fall Risk: 01/10/24 Dental Screening Dental Screen Date: 10/11/23 HPI 3 month f/u HPI Details HTN and hyperlip on rx; compliant and stable on rx PFSH Medical History Hyperlipidemia Surgical History Skin cancer of face History of hysterectomy History of cholecystectomy History of appendectomy History of tonsillectomy Family History Father Lung cancer Mother Alzheimers disease Sister Uterine cancer Brother No problems noted. Son No problems noted. Son No problems noted. Son No problems noted. Son No problems noted. Other Mental health disorder Social History (Reviewed 07/19/23 @ 10:25 by LEON Issa Housing: House Alcohol intake: never Patient Tobacco Use Status: Never used Tobacco e-Cigarette/Vaping Use: Never Used Second Hand Smoke Exposure: No service: No Current occupational status: retired Cognitive needs: Yes (cane/scotter) Hearing needs: No Vision needs: Yes (Glasses) Questionnaire Thrive Questionnaire Date Thrive assessed: 10/11/23 AUDIT C Alcohol Use Questionnaire (AUDIT-C) 1. How often do you have a drink containing alcohol?: Never Total Score: 0 Score Reviewed/Action Taken: Yes ANNELISE-7 AMB Questionnaire ANNELISE-7 Date ANNELISE - 7 assessed: 10/11/23 Source: Developed by Drs. Dex Ochoa, Kelsey Ty, Wil Puga and colleagues, with an educational camilo from [employer]. Review of Systems Const Denies chills, Denies headache(s) and Denies weight loss ENT Denies headache(s) Card Denies chest pain, Denies syncope, Denies irregular heart rhythm and Denies dyspnea Resp Denies chest congestion, Denies cough and Denies dyspnea GI Denies abdominal pain, Denies change in stool character, Denies nausea and Denies vomiting Musc Denies deformity and Denies joint swelling Neuro Denies syncope and Denies headache(s) Physical exam (Primary Care) Vital Signs: Last Vital Signs Pulse 66 01/10/24 11:12 BP 134/86 01/10/24 11:12 Pulse Ox 99 01/10/24 11:12 Oxygen Delivery Method Room Air 01/10/24 11:12 BMI result Body Mass Index 23.8 Tobacco/Smoking Status: Tobacco use Status Tobacco use date assessed 01/10/24 01/10/24 11:17 Patient Tobacco Use Status Never used Tobacco 01/10/24 11:14 e-Cigarette/Vaping Use Never Used 01/10/24 11:14 Thrive Assessment: Date of Thrive Assessment Date Thrive assessed 10/11/23 01/10/24 11:14 Const General: cooperative, comfortable, no acute distress and alert Neck Neck: Yes no lymphadenopathy Thyroid: Thyroid normal Resp Effort & Inspection: normal respiratory effort Auscultation: clear to auscultation bilaterally Percussion: percussion normal Cardio Jugular venous distension: no JVD Palpation: normal PMI Rate: regular rate Rhythm: regular rhythm Heart sounds: S1 normal heart sound present and S2 normal heart sound present GI Inspection: Yes normal to inspection Palpation (GI): No hepatosplenomegaly present Skin General skin exam: no rashes or lesions noted Extrem General: Yes no clubbing, cyanosis or edema Assessment and Plan Assessment & Plan (1) Hypertension: Code(s): I10 - Essential (primary) hypertension Plan: stable; same rx (2) Hyperlipidemia: Code(s): E78.5 - Hyperlipidemia, unspecified Plan: stable; same rx Orders: Orders Lipid Panel Today Z13.220 - Encounter for screening for lipoid disorders Comprehensive [place]. Panel Fast Today Z13.9 - Encounter for screening, unspecified Thyroid Stimulating Hormone Today Z13.29 - Encounter for screening for other suspected endocrine disorder Complete Blood Count Auto Diff Today Z13.0 - Encounter for screening for diseases of the blood and blood-forming organs and certain disorders involving the immune mechanism Coding Level of Care Code Est Pt Level 3 (95198) Diagnoses Hypertension I10 Hyperlipidemia E78.5
[2024-01-10 11:12] VITALS: BP 134/86; PULSE 66; O2SAT 99; BMI 23.8
== END 2024-01-10 11:30 | disposition home or self-care (01) ==
PROVIDERS: PCP Internal Medicine; Visit Provider Internal Medicine
DX: I10 Essential (primary) hypertension (principal); E78.5 Hyperlipidemia, unspecified
CPT/HCPCS: 99213

== ENCOUNTER 2024-07-15 10:22 | Outpatient (AMB) | payer MEDICARE, SELFPAY ==
[2024-07-15 10:30] VITALS: BP 152/84; PULSE 61; O2SAT 97; BMI 23.5
--- NOTE | 2024-07-15 10:30 | A.OFFPC_ITS ---
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 Accompanied by: Self / Same As Patient Allergies acetaminophen [From TYLENOL] Allergy (Unknown, Verified 07/15/24 10:30) UNKNOWN atorvastatin Allergy (Unknown, Verified 07/15/24 10:30) abdominal cramps atracurium Allergy (Unknown, Verified 07/15/24 10:30) Unknown egg Allergy (Unknown, Verified 07/15/24 10:30) Diarrhea lactase [From Dairy Aid] Allergy (Unknown, Verified 07/15/24 10:30) diarrhea morphine [MORPHINE] Allergy (Unknown, Verified 07/15/24 10:30) VOMITING sugar Allergy (Unknown, Verified 07/15/24 10:30) anaphylaxis urea [From Atrac-Tain] Allergy (Unknown, Verified 07/15/24 10:30) Unknown milk [MILK] Adverse Reaction (Intermediate, Verified 07/15/24 10:30) NAUSEA & VOMITING Sugars, Metabolically Active [SUGAR] Adverse Reaction (Intermediate, Verified 07/15/24 10:30) NAUSEA & VOMITING Medication List - Last Reconciled 07/16/24 by Romel Arauz MD atorvastatin 20 mg PO BEDTIME benazepril 20 mg PO DAILY Tobacco use date assessed: 01/10/24 Fall risk assessment: No Falls in past year Last assessed Fall Risk: 07/15/24 Dental Screening Dental Screen Date: 10/11/23 HPI 6mof\u HPI Details hypertension and hyperlipidemia on rx; doing well and compliant [facility] Medical History Hyperlipidemia Surgical History Skin cancer of face History of hysterectomy History of cholecystectomy History of appendectomy History of tonsillectomy Family History Father Lung cancer Mother Alzheimers disease Sister Uterine cancer Brother No problems noted. Son No problems noted. Son No problems noted. Son No problems noted. Son No problems noted. Other Mental health disorder Social History Housing: House Alcohol intake: never Patient Tobacco Use Status: Never used Tobacco Tobacco use type: Cigarette e-Cigarette/Vaping Use: Never Used Second Hand Smoke Exposure: No service: No Current occupational status: retired Cognitive needs: Yes (cane/scotter) Hearing needs: No Vision needs: Yes (Glasses) Questionnaire PHQ-9 Over the last 2 weeks, how often have you been bothered by any of the following problems? 1. Little interest or pleasure in doing things: not at all 2. Feeling down, depressed, or hopeless: not at all 3. Trouble falling or staying asleep, or sleeping too much: not at all 4. Feeling tired or having little energy: not at all 5. Poor appetite or overeating: not at all 6. Feeling bad about yourself - or that you are a failure or have let yourself or your family down: not at all 7. Trouble concentrating on things, such as reading the newspaper or watching television: not at all 8. Moving or speaking so slowly that other people could have noticed. Or the opposite - being so fidgety or restless that you have been moving around a lot more than usual: not at all 9. Thoughts that you would be better off or of hurting yourself in some way: not at all Total score: 0 Depression Screening Interpretation: Negative Depression Screening Done: Yes 19337 - PHQ-9 Billing: Yes Source: Developed by Drs. Dex Ochoa, Kelsey Ty, Wil Puga and colleagues, with an educational camilo from [employer]. Thrive Questionnaire Date Thrive assessed: 10/11/23 AUDIT C Alcohol Use Questionnaire (AUDIT-C) 1. How often do you have a drink containing alcohol?: Never Total Score: 0 Score Reviewed/Action Taken: Yes ANNELISE-7 AMB Questionnaire ANNELISE-7 Date ANNELISE - 7 assessed: 10/11/23 Source: Developed by Drs. Dex Ochoa, Wil Velasquez and colleagues, with an educational camilo from [employer]. Review of Systems Const Denies chills, Denies headache(s) and Denies weight loss ENT Denies headache(s) Card Denies chest pain, Denies syncope, Denies irregular heart rhythm and Denies dyspnea Resp Denies chest congestion, Denies cough and Denies dyspnea GI Denies abdominal pain, Denies change in stool character, Denies nausea and Denies vomiting Musc Denies deformity and Denies joint swelling Neuro Denies syncope and Denies headache(s) Physical exam (Primary Care) Vital Signs: Last Vital Signs Pulse 61 07/15/24 10:30 BP 152/84 H 07/15/24 10:30 Pulse Ox 97 07/15/24 10:30 Oxygen Delivery Method Room Air 07/15/24 10:30 BMI result Body Mass Index 23.5 Tobacco/Smoking Status: Tobacco use Status Tobacco use date assessed 01/10/24 07/15/24 10:34 Patient Tobacco Use Status Never used Tobacco 07/15/24 10:34 Tobacco use type Cigarette 07/15/24 10:34 e-Cigarette/Vaping Use Never Used 07/15/24 10:34 PHQ-9: PHQ-9 Score PHQ-9: Total score 0 07/15/24 10:34 Depression Screening Interpretation: Negative Thrive Assessment: Date of Thrive Assessment Date Thrive assessed 10/11/23 07/15/24 10:34 Const General: cooperative, comfortable, no acute distress and alert Neck Neck: Yes no lymphadenopathy Thyroid: Thyroid normal Resp Effort & Inspection: normal respiratory effort Auscultation: clear to auscultation bilaterally Percussion: percussion normal Cardio Jugular venous distension: no JVD Palpation: normal PMI Rate: regular rate Rhythm: regular rhythm Heart sounds: S1 normal heart sound present and S2 normal heart sound present GI Inspection: Yes normal to inspection Palpation (GI): No hepatosplenomegaly present Skin General skin exam: no rashes or lesions noted Extrem General: Yes no clubbing, cyanosis or edema Coding Level of Care Code Est Pt Level 3 (01299) Diagnoses Hypertension I10 Hyperlipidemia E78.5 Assessment & Plan Assessment & Plan (1) Hypertension: Code(s): I10 - Essential (primary) hypertension Category: Medical Plan: stable; same rx (2) Hyperlipidemia: Code(s): E78.5 - Hyperlipidemia, unspecified Category: Medical Plan: stable; same rx Orders: Orders Complete Blood Count Auto Diff 07/15/24 Z13.0 - Encounter for screening for diseases of the blood and blood-forming organs and certain disorders involving the immune mechanism Thyroid Stimulating Hormone 07/15/24 Z13.29 - Encounter for screening for other suspected endocrine disorder Lipid Panel 07/15/24 Z13.220 - Encounter for screening for lipoid disorders Comprehensive [place]. Panel Fast 07/15/24 Z13.9 - Encounter for screening, u nspecified
== END 2024-07-15 10:44 | disposition home or self-care (01) ==
PROVIDERS: PCP Internal Medicine; Visit Provider Internal Medicine
DX: I10 Essential (primary) hypertension (principal); E78.5 Hyperlipidemia, unspecified

== ENCOUNTER → 2024-07-15 10:22 | Outpatient (BNVA) | payer MEDICARE, SELFPAY | PROVIDERS: PCP Internal Medicine; Visit Provider Internal Medicine | DX: I10 Essential (primary) hypertension (principal); E78.5 Hyperlipidemia, unspecified | CPT/HCPCS: 96127; 99212 ==

== ENCOUNTER 2024-08-26 07:42 | Outpatient (REF) | payer MEDICARE, SELFPAY ==
[2024-08-26 07:55] LABS: MANUAL DIFF FLAG NO
[2024-08-26 08:27] LABS: Basophils Percent Auto 0.8 % (0-2); Eosinophils Absolute Auto 0.1 X10*3/uL (0.0-0.4); Eosinophils Percent Auto 2.5 % (0-4); Hematocrit 34.6 % (37.0-47.0); Imm Gran Abs Auto 0.02 X10*3/uL (0.00-0.03); Imm Gran Pct Auto 0.4 % (0.0-0.4); Lymphocytes Absolute Auto 2.2 X10*3/uL (1.2-4.9); Lymphocytes Percent Auto 42.7 % (20-40); Mean Corpuscular HGB Conc 31.8 g/dl (31.0-35.0); Mean Corpuscular Hemoglobin 30.1 pg (27.0-33.0); Mean Corpuscular Volume 94.5 fL (80.0-98.0); Mean Platelet Volume 9.8 fL (9.4-12.3); Monocytes Absolute Auto 0.5 X10*3/uL (0.1-1.2); Monocytes Percent Auto 10.2 % (2-11); Neutrophils Absolute Auto 2.3 x10*3/uL (2.0-8.3); Neutrophils Percent Auto 43.4 % (45-73); Platelet Count 253 X10*3/uL (160-400); Red Blood Count 3.66 X10*6/uL (4.20-5.50); Red Cell Distribution Width 13.2 % (11.0-16.0); White Blood Count 5.2 X10*3/uL (4.8-10.8)
[2024-08-26 09:02] LABS: Alanine Aminotransferase 16 U/L (0-31); Alkaline Phosphatase 70 U/L (39-117); Anion Gap 12 (12-20); Aspartate Amino Transferase 24 U/L (5-31); Bilirubin Total 0.4 mg/dL (0.0-1.0); Blood Urea Nitrogen 23 mg/dL (9-16); Calcium 9.3 mg/dL (8.4-10.2); Carbon Dioxide 24 mmol/L (22-29); Chloride 110 mmol/L (96-108); Cholesterol 174 mg/dL (<200); Estimated Glomerular Filt Rate 43; Glucose Fasting 81 mg/dL (60-99); HDL Cholesterol 69 mg/dL (>40); LDL Cholesterol Calculated 85 mg/dL (<100); Potassium 4.2 mmol/L (3.3-5.1); Sodium 142 mmol/L (135-145); Total Protein 6.9 g/dL (6.5-8.0); Triglycerides 104 mg/dL (<150)
[2024-08-26 09:20] LABS: Thyroid Stimulating Hormone 2.63 uIU/mL (0.32-4.0)
== END 2024-08-26 07:43 | disposition home or self-care (01) ==
LOC: HO.LAB 07:42
PROVIDERS: PCP Internal Medicine; Visit Provider Internal Medicine
DX: Z13.0 Encounter for screening for diseases of the blood and blood-forming organs and certain disorders involving the immune mechanism (principal); Z13.220 Encounter for screening for lipoid disorders; Z13.29 Encounter for screening for other suspected endocrine disorder; Z13.6 Encounter for screening for cardiovascular disorders
CPT/HCPCS: 36415; 80053; 80061; 84443; 85025

== ENCOUNTER 2024-11-27 09:15 | Outpatient (AMB) | payer MEDICARE, SELFPAY ==
--- NOTE | 2024-11-27 09:22 | A.OFFPC_ITS ---
Vital Signs 11/27/24 09:23 Height 5 ft 2 in Weight 132 lb 7.965 oz BMI 24.2 BP 120/70 Blood Pressure Location Lt brachial Position Sitting Pulse 71 Pulse Source Pulse Oximeter Temp 97.3 F Temp Source Temporal Artery Scan Pulse Oximetry (%) 99 Oxygen Delivery Method Room Air Intake Visit Reasons: 5 month f/u Intake Note: Patient is here to follow up on HTN, HLD. 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 Accompanied by: Self / Same As Patient Allergies acetaminophen [From TYLENOL] Allergy (Unknown, Verified 11/27/24 09:23) UNKNOWN atorvastatin Allergy (Unknown, Verified 11/27/24 09:23) abdominal cramps atracurium Allergy (Unknown, Verified 11/27/24 09:23) Unknown egg Allergy (Unknown, Verified 11/27/24 09:23) Diarrhea lactase [From Dairy Aid] Allergy (Unknown, Verified 11/27/24 09:23) diarrhea morphine [MORPHINE] Allergy (Unknown, Verified 11/27/24 09:23) VOMITING sugar Allergy (Unknown, Verified 11/27/24 09:23) anaphylaxis urea [From Atrac-Tain] Allergy (Unknown, Verified 11/27/24 09:23) Unknown milk [MILK] Adverse Reaction (Intermediate, Verified 11/27/24 09:23) NAUSEA & VOMITING Sugars, Metabolically Active [SUGAR] Adverse Reaction (Intermediate, Verified 11/27/24 09:23) NAUSEA & VOMITING Medication List - Last Reconciled 11/27/24 by Romel Arauz MD atorvastatin 20 mg PO BEDTIME benazepril 20 mg PO DAILY Tobacco use date assessed: 11/27/24 Fall risk assessment: No Falls in past year Last assessed Fall Risk: 11/27/24 Dental Screening Dental Screen Date: 11/27/24 Did you have a dental visit in the last 12 months?: No Did you have a dental problem in the last 6 months where you did not have access to dental care?: No Was dental information given to patient?: No HPI 5 month f/u HPI Details hyperlipidemia on rx; doing well; compliant [facility] Medical History Hyperlipidemia Surgical History Skin cancer of face History of hysterectomy History of cholecystectomy History of appendectomy History of tonsillectomy Family History Father Lung cancer Mother Alzheimers disease Sister Uterine cancer Brother No problems noted. Son No problems noted. Son No problems noted. Son No problems noted. Son No problems noted. Other Mental health disorder Social History Housing: House Alcohol intake: never Patient Tobacco Use Status: Never used Tobacco Tobacco use type: Cigarette e-Cigarette/Vaping Use: Never Used Second Hand Smoke Exposure: No service: No Current occupational status: retired Cognitive needs: Yes (cane/scotter) Hearing needs: No Vision needs: Yes (Glasses) Questionnaire PHQ-9 Over the last 2 weeks, how often have you been bothered by any of the following problems? 1. Little interest or pleasure in doing things: not at all 2. Feeling down, depressed, or hopeless: not at all 3. Trouble falling or staying asleep, or sleeping too much: not at all 4. Feeling tired or having little energy: not at all 5. Poor appetite or overeating: not at all 6. Feeling bad about yourself - or that you are a failure or have let yourself or your family down: not at all 7. Trouble concentrating on things, such as reading the newspaper or watching television: not at all 8. Moving or speaking so slowly that other people could have noticed. Or the opposite - being so fidgety or restless that you have been moving around a lot more than usual: not at all 9. Thoughts that you would be better off or of hurting yourself in some way: not at all Total score: 0 Depression Screening Interpretation: Negative Depression Screening Done: Yes Source: Developed by Drs. Dex Ochoa, Kelsey Ty, Wil Puga and colleagues, with an educational camilo from [employer]. Thrive Questionnaire Date Thrive assessed: 11/27/24 I am a: Patient What is your living situation today?: I have a steady place to live Within the past 12 months, did the food you bought not last and you didn't have the money to get more?: Never true Within the past 12 months, did you worry whether your food would run out before you got money to buy more?: Never true Do you have trouble paying for medicines?: No Do you have trouble getting transportation to medical appointments?: No Do you have trouble paying your heating and electricity bill?: No Do you have trouble taking care of your child, family member or friend?: No Do you have trouble with day-to-day activities such as bathing, preparing meals, shopping, managing finances, etc.?: No Are you currently unemployed and looking for a job?: No Are you interested in more education?: No Please select the resources that you would like help with: None Currently or been in a relationship where the following occur: No concerns reported THRIVE Score: 0 AUDIT C Alcohol Use Questionnaire (AUDIT-C) 1. How often do you have a drink containing alcohol?: Never Total Score: 0 ANNELISE-7 AMB Questionnaire ANNELISE-7 Date ANNELISE - 7 assessed: 11/27/24 Feeling nervous, anxious, or on edge: 0 = Not at all Not being able to stop or control worryin = Not at all Worrying too much about different things: 0 = Not at all Trouble relaxin = Not at all Being so restless that it is hard to sit still: 0 = Not at all Becoming easily annoyed or irritable: 0 = Not at all Feeling afraid as if something awful might happen: 0 = Not at all Total ANNELISE-7 score (0-4 normal; 5-9 mild; 10-14 moderate; 15-21 severe): 0 Source: Developed by Drs. eDx Ochoa, Kelsey Ty, Wil Puga and colleagues, with an educational camilo from [employer]. Review of Systems Const Denies chills, Denies headache(s) and Denies weight loss ENT Denies headache(s) Card Denies chest pain, Denies syncope, Denies irregular heart rhythm and Denies dyspnea Resp Denies chest congestion, Denies cough and Denies dyspnea GI Denies abdominal pain, Denies change in stool character, Denies nausea and Denies vomiting Musc Denies deformity and Denies joint swelling Neuro Denies syncope and Denies headache(s) Physical exam (Primary Care) Vital Signs: Last Vital Signs Temp 97.3 F 11/27/24 09:23 Pulse 71 11/27/24 09:23 BP 120/70 11/27/24 09:23 Pulse Ox 99 11/27/24 09:23 Oxygen Delivery Method Room Air 11/27/24 09:23 BMI result Body Mass Index 24.2 Tobacco/Smoking Status: Tobacco use Status Tobacco use date assessed 11/27/24 11/27/24 09:26 Patient Tobacco Use Status Never used Tobacco 11/27/24 09:26 Tobacco use type Cigarette 11/27/24 09:26 e-Cigarette/Vaping Use Never Used 11/27/24 09:26 PHQ-9: PHQ-9 Score PHQ-9: Total score 0 11/27/24 09:31 Depression Screening Interpretation: Negative Thrive Assessment: Date of Thrive Assessment Date Thrive assessed 11/27/24 11/27/24 09:26 Currently or been in a relationship where the following occur: No concerns reported Const General: cooperative, comfortable, no acute distress and alert Neck Neck: Yes no lymphadenopathy Thyroid: Thyroid normal Resp Effort & Inspection: normal respiratory effort Auscultation: clear to auscultation bilaterally Percussion: percussion normal Cardio Jugular venous distension: no JVD Palpation: normal PMI Rate: regular rate Rhythm: regular rhythm Heart sounds: S1 normal heart sound present and S2 normal heart sound present GI Inspection: Yes normal to inspection Palpation (GI): No hepatosplenomegaly present Skin General skin exam: no rashes or lesions noted Extrem General: Yes no clubbing, cyanosis or edema Coding Level of Care Code Est Pt Level 3 (73437) Diagnoses Hyperlipidemia E78.5 Assessment & Plan Assessment & Plan (1) Hyperlipidemia: Code(s): E78.5 - Hyperlipidemia, unspecified Category: Medical Plan: stable; same rx
[2024-11-27 09:23] VITALS: BP 120/70; PULSE 71; TEMP 36.3; O2SAT 99; BMI 24.2
== END 2024-11-27 09:38 | disposition home or self-care (01) ==
PROVIDERS: PCP Internal Medicine; Visit Provider Internal Medicine
DX: E78.5 Hyperlipidemia, unspecified (principal)

== ENCOUNTER → 2024-11-27 09:15 | Outpatient (BNVA) | payer MEDICARE, SELFPAY | PROVIDERS: PCP Internal Medicine; Visit Provider Internal Medicine | DX: E78.5 Hyperlipidemia, unspecified (principal) | CPT/HCPCS: 99212 ==

== ENCOUNTER 2025-05-30 09:04 | Outpatient (AMB) | payer MEDICARE, SELFPAY ==
--- NOTE | 2025-05-30 09:05 | MHC.PC.OV ---
Vital Signs 05/30/25 09:07 Height 5 ft 2 in Weight 149 lb 14.629 oz BMI 27.4 BP 120/70 Blood Pressure Location Lt brachial Position Sitting Pulse 77 Pulse Source Pulse Oximeter Temp 97.1 F Temp Source Temporal Artery Scan Pulse Oximetry (%) 98 Oxygen Delivery Method Room Air Intake Visit Reasons: Transfer from [facility] f/u Intake Note: Patient is here today for PRECIOUS from Dr Arauz. 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: Not Required per policy Accompanied by: Self / Same As Patient Allergies acetaminophen (From TYLENOL) Allergy (Unknown, Verified 05/30/25 09:20) UNKNOWN atorvastatin Allergy (Unknown, Verified 05/30/25 09:20) abdominal cramps atracurium Allergy (Unknown, Verified 05/30/25 09:20) Unknown egg Allergy (Unknown, Verified 05/30/25 09:20) Diarrhea lactase (From Dairy Aid) Allergy (Unknown, Verified 05/30/25 09:20) diarrhea morphine (MORPHINE) Allergy (Unknown, Verified 05/30/25 09:20) VOMITING sugar Allergy (Unknown, Verified 05/30/25 09:20) anaphylaxis urea (From Atrac-Tain) Allergy (Unknown, Verified 05/30/25 09:20) Unknown milk (MILK) Adverse Reaction (Intermediate, Verified 05/30/25 09:20) NAUSEA & VOMITING Sugars, Metabolically Active (SUGAR) Adverse Reaction (Intermediate, Verified 05/30/25 09:20) NAUSEA & VOMITING Medication List - Last Reconciled 05/30/25 by Regine Anaya PA-C atorvastatin 20 mg PO BEDTIME benazepril 20 mg PO DAILY Tobacco use date assessed: 05/30/25 Fall risk assessment: No Falls in past year Last assessed Fall Risk: 05/30/25 Dental Screening Dental Screen Date: 11/27/24 HPI Transfer from [facility] 6 month f/u HPI Details 79 year old female with past medical history hyperlipidemia and hypertension last seen 11/[address] Arauz coming in for PRECIOUS. Presenting with dizziness related to mask usage. The dizziness is associated with mask usage and resolves upon removal of the mask. She has a history of hypertension and hyperlipidemia, which are managed with medications. The patient has allergies to cheese, milk, and fat, and uses lactate milk as a substitute. [facility] Medical History Fracture of proximal end of left humerus Fracture of left humerus Hyperlipidemia Surgical History Skin cancer of face History of hysterectomy History of cholecystectomy History of appendectomy History of tonsillectomy Family History Father Lung cancer Mother Alzheimers disease Sister Uterine cancer Brother No problems noted. Son No problems noted. Son No problems noted. Son No problems noted. Son No problems noted. Other Mental health disorder Social History Housing: House Alcohol intake: never Patient Tobacco Use Status: Never used Tobacco Tobacco use type: Cigarette e-Cigarette/Vaping Use: Never Used Second Hand Smoke Exposure: No service: No Current occupational status: retired Cognitive needs: Yes (cane/scotter) Hearing needs: No Vision needs: Yes (Glasses) Questionnaire PHQ-9 Over the last 2 weeks, how often have you been bothered by any of the following problems? 1. Little interest or pleasure in doing things: not at all 2. Feeling down, depressed, or hopeless: not at all 3. Trouble falling or staying asleep, or sleeping too much: not at all 4. Feeling tired or having little energy: not at all 5. Poor appetite or overeating: not at all 6. Feeling bad about yourself - or that you are a failure or have let yourself or your family down: not at all 7. Trouble concentrating on things, such as reading the newspaper or watching television: not at all 8. Moving or speaking so slowly that other people could have noticed. Or the opposite - being so fidgety or restless that you have been moving around a lot more than usual: not at all 9. Thoughts that you would be better off or of hurting yourself in some way: not at all Total score: 0 Depression Screening Interpretation: Negative Depression Screening Done: Yes Source: Developed by Drs. Dex Ochoa, Kelsey Ty, Wil Puga and colleagues, with an educational camilo from [employer] Thrive Questionnaire Date Thrive assessed: 11/27/24 ANNELISE-7 AMB Questionnaire ANNELISE-7 Date ANNELISE - 7 assessed: 11/27/24 Feeling nervous, anxious, or on edge: 0 = Not at all Not being able to stop or control worryin = Not at all Worrying too much about different things: 0 = Not at all Trouble relaxin = Not at all Being so restless that it is hard to sit still: 0 = Not at all Becoming easily annoyed or irritable: 0 = Not at all Feeling afraid as if something awful might happen: 0 = Not at all Total ANNELISE-7 score (0-4 normal; 5-9 mild; 10-14 moderate; 15-21 severe): 0 Source: Developed by Drs. Dex Ochoa, Kelsey Ty, Wil Puga and colleagues, with an educational camilo from [employer]. Review of Systems Const Details: mild weakness Denies body aches, Denies chills, Denies fever(s), Denies headache(s) and Denies poor appetite Eyes Reports no additional complaints ENT Denies dizziness, Denies headache(s), Denies odynophagia and Denies sore throat Card Denies chest pain, Denies syncope, Denies edema, Denies irregular heart rhythm, Denies lightheadedness and Denies dyspnea Resp Denies cough and Denies dyspnea GI Denies abdominal pain, Denies nausea, Denies odynophagia and Denies vomiting Reports no additional complaints Musc Reports no additional complaints and Denies abnormal gait Skin/Breast Reports system reviewed and no additional complaints, except as documented Neuro Denies abnormal gait, Denies dizziness, Denies syncope and Denies headache(s) Psych Reports no additional complaints Physical exam (Primary Care) Vital Signs: Last Vital Signs Temp 97.1 F 05/30/25 09:07 Pulse 77 05/30/25 09:07 BP 120/70 05/30/25 09:07 Pulse Ox 98 05/30/25 09:07 Oxygen Delivery Method Room Air 05/30/25 09:07 BMI result Body Mass Index 27.4 Tobacco/Smoking Status: Tobacco use Status Tobacco use date assessed 05/30/25 05/30/25 09:12 Patient Tobacco Use Status Never used Tobacco 05/30/25 09:12 Tobacco use type Cigarette 05/30/25 09:12 e-Cigarette/Vaping Use Never Used 05/30/25 09:12 PHQ-9: PHQ-9 Score PHQ-9: Total score 0 05/30/25 09:21 Depression Screening Interpretation: Negative Thrive Assessment: Date of Thrive Assessment Date Thrive assessed 11/27/24 05/30/25 09:12 Const General: cooperative, healthy appearing, comfortable and no acute distress Orientation/consciousness: patient oriented x3 HENMT Head: Yes normocephalic Ears: hearing grossly normal bilaterally General nose exam: Normal external nose present Eyes General: appearance normal, both eyes and all related structures Conjunctivae: conjunctivae normal Neck Neck: Yes full ROM and Yes no lymphadenopathy Resp Effort & Inspection: normal respiratory effort Auscultation: clear to auscultation bilaterally, no crackles, no rales, no rhonchi and no wheezes Cardio Rate: regular rate Rhythm: regular rhythm Skin General skin exam: no rashes or lesions noted Neuro General: patient oriented x3 Gait exam (Neuro): Normal gait present Extrem General: Yes normal to inspection, Yes full ROM and No edema Psych Affect: normal affect Attitude: cooperative Insight: Good insight present (Psych) Judgement: Good judgement present (Psych) Coding Level of Care Code Est Pt Level 3 (41198) Diagnoses Hypertension I10 Hyperlipidemia E78.5 Fatigue R53.83 Assessment & Plan Assessment & Plan (1) Hypertension: Code(s): I10 - Essential (primary) hypertension Category: Medical Plan: Continue on current blood pressure medication. Avoid salt intake and encourage healthy diet and regular exercise. BP at home has been good within normal limits. (2) Hyperlipidemia: Code(s): E78.5 - Hyperlipidemia, unspecified Category: Medical Plan: Avoid foods that are high in cholesterol such as red meat, fried foods, eggs and baked goods. Triglyceride goal of less than 150 and LDL goal of less than 130. Continue on Atorvastatin 20mg. (3) Fatigue: Code(s): R53.83 - Other fatigue Category: Medical Plan: She tells us today she has been feeling fatigued and does have multiple sick contacts at home. She does have several family members have tested positive for COVID-19. Swab was taken in the office today and plan to test for COVID/flu/RSV. Plan During the visit, we discussed the patient's dizziness related to mask usage and advised minimizing mask wear when possible. We reviewed her hypertension and hyperlipidemia management, emphasizing the importance of medication adherence and regular monitoring. We also addressed her allergies and recommended continued avoidance of allergens. COVID-19 testing was performed, and results are pending. Follow-up appointments were scheduled to monitor her conditions. This note was constructed using voice recognition software. While every effort has been made to ensure accuracy and ict sales assistant, still areas may have been included sometimes these areas may affect the content or meeting of the given symptoms. Total time spent caring for the patient today was 20 minutes. This includes time spent before the visit reviewing the chart, time spent during the visit, and time spent after the visit and documentation. Patient was informed and verbally consented to the use of an ambient scribe for clinic note documentation during this visit. Orders: Orders Complete Blood Count Auto Diff Today I10 - Essential (primary) hypertension, Z00.00 - Encounter for general adult medical examination without abnormal findings TSH reflex Free T4 Today Z13.29 - Encounter for screening for other suspected endocrine disorder Lipid Panel Today E78.00 - Pure hypercholesterolemia, unspecified Comprehensive Met. Panel Today I10 - Essential (primary) hypertension, Z00.00 - Encounter for general adult medical examination without abnormal findings Vitamin B12 and Folate Today Z13.21 - Encounter for screening for nutritional disorder Vitamin D 25-OH Total Today Z13.21 - Encounter for screening for nutritional disorder SARS-CoV2/FLU/RSV Today R09.89 - Other specified symptoms and signs involving the circulatory and respiratory systems
[2025-05-30 09:07] VITALS: BP 120/70; PULSE 77; TEMP 36.2; O2SAT 98; BMI 27.4
--- OUTSIDE RECORDS SUMMARY | 2025-05-30 09:53 | XMS_ITS | Patient Health Record ---
Author Organization [facility] Address [address] [place] [id number] Care Team Providers Care Isotope Technician Name Role Phone Mamadou Leonard Jr Reason For Referral No Information Plan Of Treatment No Information
== END 2025-05-30 09:50 | disposition home or self-care (01) ==
LOC: HO.HMCH 09:04
DX: I10 Essential (primary) hypertension (principal); E78.5 Hyperlipidemia, unspecified; R53.83 Other fatigue

== ENCOUNTER 2025-05-30 09:04 | Outpatient (REF) | payer MEDICARE, SELFPAY ==
[2025-05-30 13:13] LABS: Resp Syncy Virus RNA Qual PCR NEGATIVE (Negative); SARS COV2 PCR INHOUSE NEGATIVE (Negative)
== END 2025-05-30 09:05 | disposition home or self-care (01) ==
LOC: HO.LNP 09:04
DX: R09.89 Other specified symptoms and signs involving the circulatory and respiratory systems (principal); I10 Essential (primary) hypertension; E78.5 Hyperlipidemia, unspecified
CPT/HCPCS: 87637; 99212